=== PATIENT | female | born 1970 | race Caucasian/White ===

== ENCOUNTER → 2022-04-28 08:08 | Outpatient (CLI) | payer SELFPAY ==
[2022-04-28 20:41] LABS: COVID19 - ORCAS (NP or Nasal) Negative (Negative)
== END ==
PROVIDERS: Visit Provider Family Medicine
DX: Z01.812 Encounter for preprocedural laboratory examination (principal); Z20.822 Contact with and (suspected) exposure to COVID-19
CPT/HCPCS: C9803; U0003